=== PATIENT | female | born 1975 | race Caucasian/White ===

== ENCOUNTER 2018-09-09 16:20 | Emergency (ER) | payer OTHER ==
--- NOTE | 2018-09-09 16:54 | PDOC ---
Rapid Medical Evaluation Time Seen by Provider: 09/09/18 16:50 Medical Evaluation: I have performed a brief in-person evaluation of this patient. The patient presents with a chief complaint of: headache with nausea x 2 hours. right sided nose bleed. patient took no OTC meds Pertinent physical exam findings: none I have ordered the following: hcg The patient will proceed to the ED for further evaluation. Discharge Disposition - Diagnosis Headache - Referrals - Patient Instructions - Post Discharge Activity
[2018-09-09 16:56] VITALS: BP 120/62; PULSE 85; TEMP 98.6; BMI 27.3
[2018-09-09] MEDS ORDERED: ACETAMINOPHEN 500 MG TABLET (FP) PO ONE (17:16)
[2018-09-09] MEDS ORDERED: ACETAMINOPHEN 500 MG TABLET (FP) ONE (17:20)
[2018-09-09 17:41] LABS: BASO % 0.5 % (0-2.0); EOS % 2.3 % (0-4.5); HEMATOCRIT 37.8 % (32.4-45.2); HEMOGLOBIN 13.1 GM/dL (10.7-15.3); LYMPH % 34.6 % (8-40); MCH 28.1 pg (25.7-33.7); MCHC 34.6 g/dl (32.0-36.0); MEAN CELL VOLUME 81.3 fl (80-96); MEAN PLT VOLUME 8.7 fl (7.5-11.1); NEUT % 56.6 % (42.8-82.8); PLATELET COUNT 346 K/MM3 (134-434); RBC 4.65 M/mm3 (3.60-5.2); RDW 12.7 % (11.6-15.6); WHITE BLOOD COUNT 9.5 K/mm3 (4.0-10.0)
[2018-09-09 17:57] LABS: ALBUMIN 3.9 g/dl (3.4-5.0); ALK PHOS 71 U/L (45-117); ANION GAP 8 MMOL/L (8-16); BILIRUBIN,TOTAL 0.7 mg/dL (0.2-1); BLOOD UREA NITROGEN 11 mg/dL (7-18); CHLORIDE 104 mmol/L (98-107); CO2 26 mmol/L (21-32); CREATININE 0.9 mg/dL (0.55-1.3); GLUCOSE,RANDOM 101 mg/dL (74-106); POTASSIUM 3.8 mmol/L (3.5-5.1); SGOT/AST 18 U/L (15-37); SGPT/ALT 20 U/L (13-61); SODIUM 138 mmol/L (136-145); TOT PROT 7.8 g/dl (6.4-8.2)
--- NOTE | 2018-09-09 18:04 | PDOC ---
History of Present Illness - General Chief Complaint: Headache Stated Complaint: HEADACHE/NASAL BLEEDING Time Seen by Provider: 09/09/18 16:50 - History of Present Illness Initial Comments: 09/09/18 18:02 43 yo F with h/o asthma who p/w right sided unilateral headache. Pt. reports onset of stable, R sided, pulsating headache, beginning this AM, with no identifiable triggers. + Phonophobia/photophobia. Endorses nausea with two episodes of bilious, non bloody emesis this afternoon. Normal PO intake. states that headache is worse than prior headaches. Pain not improved with ASA. Typically takes Tylenol for YEN's, but did not take Tylenol today. Reports R sided nasal bleeding, now resolved. Denies head trauma. h/o R sided sinusitis, seen by ENT. Patient denies neck stiffness/pain, scintillating scotomas, olfactory change, vision change, tinnitus hearing loss, lacrimation, rhinnorhea, N/V, F,C, CP, SOB , urinary complaints, abdominal pain, diarrhea, constipation, lightheadedness, BPR, hematuria, weakness, sensory changes. PMHx: as noted above ROS: as noted Allergies: NKDA Past History - Past Medical History Allergies/Adverse Reactions: Allergies Allergy/AdvReac Type Severity Reaction Status Date / Time No Known Allergies Allergy Verified 09/09/18 16:51 Home Medications: Ambulatory Orders Albuterol Sulfate Inhaler - [Ventolin Hfa Inhaler -] 1 - 2 inh PO QID 09/09/18 Asthma: Yes COPD: No - Suicide/Smoking/Psychosocial Hx Smoking History: Never smoked Review of Systems - Review of Systems Comments:: 09/09/18 18:03 GENERAL/CONSTITUTIONAL: No fever or chills. No weakness. HEAD, EYES, EARS, NOSE AND THROAT: No change in vision. No ear pain or discharge. No sore throat. CARDIOVASCULAR: No chest pain or shortness of breath RESPIRATORY: No cough, wheezing, or hemoptysis. GASTROINTESTINAL: +nausea, vomiting. No diarrhea or constipation. GENITOURINARY: No dysuria, frequency, or change in urination. MUSCULOSKELETAL: No joint or muscle swelling or pain. No neck or back pain. SKIN: No rash NEUROLOGIC: +headache. No vertigo, loss of consciousness, or change in strength/ sensation. ENDOCRINE: No increased thirst. No abnormal weight change HEMATOLOGIC/LYMPHATIC: No anemia, easy bleeding, or history of blood clots. ALLERGIC/IMMUNOLOGIC: No hives or skin allergy. *Physical Exam - Vital Signs Last Vital Signs Temp Pulse Resp BP Pulse Ox 98.6 F 85 20 120/62 100 09/09/18 16:55 09/09/18 16:55 09/09/18 16:55 09/09/18 16:55 09/09/18 16:55 - Physical Exam Comments: 09/09/18 18:03 GENERAL: Awake, alert, and fully oriented, in no acute distress HEAD: No signs of trauma, normocephalic, atraumatic EYES: PERRLA, EOMI, sclera anicteric, conjunctiva clear ENT: + R sided maxillary sinus ttp. Auricles normal inspection, hearing grossly normal, nares patent, oropharynx clear without exudates. Moist mucosa NECK: Normal ROM, supple, no lymphadenopathy, JVD, or masses LUNGS: No distress, speaks full sentences, clear to auscultation bilaterally HEART: Regular rate and rhythm, normal S1 and S2, no murmurs, rubs or gallops, peripheral pulses normal and equal bilaterally. ABDOMEN: Soft, nontender, normoactive bowel sounds. No guarding, no rebound. No masses. Neg CVA ttp. EXTREMITIES : Normal inspection, Normal range of motion, no edema. No clubbing or cyanosis. NEUROLOGICAL: Cranial nerves II through XII grossly intact. Normal speech, normal gait, no focal sensorimotor deficits. Nml GERBER. Neg dysmetria on FTN, HTS. SKIN: Warm, Dry, normal turgor, no rashes or lesions noted Moderate Sedation - Procedure Monitoring Vital Signs: Procedure Monitoring Vital Signs Temperature 98.6 F 09/09/18 16:55 Pulse Rate 85 09/09/18 16:55 Respiratory Rate 20 09/09/18 16:55 Blood Pressure 120/62 09/09/18 16:55 O2 Sat by Pulse Oximetry (%) 100 09/09/18 16:55 ED Treatment Course - LABORATORY CBC & Chemistry Diagram: 09/09/18 17:21 09/09/18 17:21 - ADDITIONAL ORDERS Additional order review: Laboratory Results 09/09/18 17:21 Sodium 138 Potassium 3.8 Chloride 104 Carbon Dioxide 26 Anion Gap 8 BUN 11 Creatinine 0.9 Creat Clearance w eGFR > 60 Random Glucose 101 Calcium 9.0 Total Bilirubin 0.7 AST 18 ALT 20 Alkaline Phosphatase 71 Total Protein 7.8 Albumin 3.9 09/09/18 17:21 RBC 4.65 MCV 81.3 MCHC 34.6 RDW 12.7 MPV 8.7 Neutrophils % 56.6 Lymphocytes % 34.6 Monocytes % 6.0 Eosinophils % 2.3 Basophils % 0.5 - Medications Given in the ED: ED Medications Discontinued Medications Generic Name Dose Route Start Last Admin Trade Name Josep PRN Reason Stop Dose Admin Acetaminophen 1,000 mg 09/09/18 17:16 09/09/18 17:22 Tylenol - PO 09/09/18 17:17 1,000 mg ONCE ONE Administration Medical Decision Making - Medical Decision Making 09/09/18 18:16 43 yo F with h/o asthma who p/w right sided pulsating, unilateral headache, and vomittng. VSS, AF, A&Ox3. Absent neurological deficits on physical exam. Low suspicion SAH, meningitis, CVT, hypertensive emergency, pseudotumor. Likely migraine without aura vs. sinusitis. DDx also includes tension YEN, cluster YEN. Ed Course: Arrives from E CBC,CMP, HCG, UA Reglan, NS, Rylenol,Diphenhydramine 09/09/18 20:11 CBC,CMP: Unremarkable CTH: Neg. No acute pathology YEN improved/resolved Patient stable for d/c with return precautions. Advised to f/u with neuro. *DC/Admit/Observation/Transfer Diagnosis at time of Disposition: Headache Qualifiers: Headache type: unspecified Headache chronicity pattern: acute headache Intractability: not intractable Qualified Code(s): R51 - Headache - Discharge Dispostion Condition at time of disposition: Stable - Referrals Referrals: ON STAFF,NOT [Primary Care Provider] - Matt Manrique MD [Staff Physician] - - Patient Instructions Printed Discharge Instructions: DI for Migraine Additional Instructions: Please return to the emergency department with any new or worsening symptoms or concerns. Please follow up with your primary care physician within 72 hours. Please f/u with neurology within one week. Continue to take Ibruprofen and Tylenol for pain. - Post Discharge Activity - Attestations Physician Attestion: 09/09/18 18:03 I attest to the information provided in this note.
[2018-09-09] MEDS ORDERED: METOCLOPRAMIDE HCL INJECTION 10 MG/2 ML VIAL IVPUSH ONE (18:10)
[2018-09-09] MEDS ORDERED: SODIUM CHLORIDE 1,000 ML IV STA (18:16)
[2018-09-09] MEDS ORDERED: METOCLOPRAMIDE HCL INJECTION 10 MG/2 ML VIAL ONE (18:44)
[2018-09-09 19:32] LABS: ERYTHROCYTE SEDIMENTATION RATE 20 mm/hr (0-20)
--- NOTE | 2018-09-09 19:48 | PDOC ---
Attending Attestation - Resident Resident Name: Markell Mcgee - ED Attending Attestation I have performed the following: I have examined & evaluated the patient, The case was reviewed & discussed with the resident, I agree w/resident's findings & plan - HPI HPI: 09/09/18 20:02 43-year-old female history of migraines presents with severe headache with photophobia/nausea/vomiting that began progressively over the course of the day , also with an episode of epistaxis after vomiting. Similar to past migraines but not able to take home medications presents for evaluation. No other red flags of fevers or chills, no neck stiffness or confusion. - Physicial Exam PE: 09/09/18 20:03 Afebrile Upon my evaluation status post medications administered, patient has 0 out of 10 headache and wants to go home No facial tenderness, no photophobia, pupils are equal round reactive to light NEURO: Mental status: The patient is alert and oriented x3. Cranial nerves: Cranial nerves II through XII are intact Motor: The upper extremities are 5 over 5 in all muscle groups. The lower extremities are 5 over 5 in all muscle groups. No pronator drift. Sensation: Sensation is intact to light touch throughout. Cerebellar: Flezvl-zzuiry-zatr is normal in both upper extremities. Heel-knee- izaguirre is normal in both lower extremities. Gait: Normal. Heel and toe walking are normal. Tandem gait is normal. - Medical Decision Making 09/09/18 20:04 43-year-old female with migraine exacerbation, no other red flags on history or physical exam. CT head normal Labs are within normal limits, urine negative Received Tylenol, Reglan, Benadryl, IV fluids with complete relief of her headache Has Tylenol and Motrin at home, will provide neurology follow-up, understands return criteria
== END 2018-09-09 20:36 | disposition home or self-care (01) ==
LOC: JERFT 16:20 → JER 16:20
PROC: 3E0337Z Introduction of Electrolytic and Water Balance Substance into Peripheral Vein, Percutaneous Approach (ICD-10-PCS; principal; 2018-09-09)
PROC: 3E033GC Introduction of Other Therapeutic Substance into Peripheral Vein, Percutaneous Approach (ICD-10-PCS; 2018-09-09)
PROC: 3E033GC Introduction of Other Therapeutic Substance into Peripheral Vein, Percutaneous Approach (ICD-10-PCS; 2018-09-09)
DX: G43.909 Migraine, unspecified, not intractable, without status migrainosus (principal)
CPT/HCPCS: 36415; 70450-TC; 80053; 84703; 85025; 85651; 99282-25; J7030

== ENCOUNTER 2019-11-11 04:44 | Day surgery (SDC) | payer OTHER ==
[2019-11-09 13:45] VITALS: BMI 28.3
--- NOTE | 2019-11-11 07:40 | HP ---
Admitting History and Physical - Admission Chief Complaint: Vulva mass History of Present Illness: 44 yo Para 2, with prior hysterectomy and appendectomy is pre op for left Bartholin cyst excision. History Source: Patient Limitations to Obtaining History: No Limitations - Past Medical History ...LMP Comment: HX HYSTERECTOMY ...: No ...Para: 2 - Past Surgical History Past Surgical History: Yes: Appendectomy, Hysterectomy - Smoking History Smoking history: Never smoked - Alcohol/Substance Use Hx Alcohol Use: No - Social History History of Recent Travel: No Home Medications - Allergies Allergies/Adverse Reactions: Allergies Allergy/AdvReac Type Severity Reaction Status Date / Time No Known Allergies Allergy Verified 09/09/18 16:51 - Home Medications Home Medications: Ambulatory Orders Albuterol Sulfate Inhaler - [Ventolin Hfa Inhaler -] 1 - 2 inh PO QID 09/09/18 Family Medical History Family History: Unremarkable Review of Systems - Review of Systems Constitutional: reports: No Symptoms Eyes: reports: No Symptoms HENT: reports: No Symptoms Neck: reports: No Symptoms Cardiovascular: reports: No Symptoms Respiratory: reports: No Symptoms Gastrointestinal: reports: No Symptoms Genitourinary: denies: Pain Breasts: reports: No Symptoms Reported Musculoskeletal: reports: No Symptoms Psychiatric: reports: No Symptoms Pain Intensity: 0 Physical Examination Vital Signs: Vital Signs Temperature 98.5 F 11/11/19 06:50 Pulse Rate 69 11/11/19 06:50 Respiratory Rate 18 11/11/19 06:50 Blood Pressure 134/77 11/11/19 06:50 O2 Sat by Pulse Oximetry (%) 100 11/11/19 06:51 Constitutional: Yes: No Distress Eyes: Yes: Conjunctiva Clear Neck: Yes: Supple Cardiovascular: Yes: Regular Rate and Rhythm Respiratory: Yes: Regular Gastrointestinal: Yes: Normal Bowel Sounds ...Rectal Exam: Yes: WNL Breast(s): Yes: WNL Musculoskeletal: Yes: WNL Extremities: Yes: WNL Neurological: Yes: Alert, Oriented ...Motor Strength: WNL Psychiatric: Yes: Alert, Oriented Problem List - Problems (1) Bartholin cyst Problems reviewed: Yes Code(s): N75.0 - CYST OF BARTHOLIN'S GLAND Assessment/Plan Left Bartholin cyst Pre op for excision of Bartholin cyst Consent signed Anesthesia to see patient
[2019-11-11] MEDS ORDERED: LIDOCAINE HCL/PF 2% SDV 5ML VIAL ONE (07:41)
[2019-11-11] MEDS ORDERED: MIDAZOLAM HCL 2 MG/2 ML SINGLE DOSE VIAL ONE (07:42)
[2019-11-11] MEDS ORDERED: PROPOFOL 20 ML ONE (07:42)
[2019-11-11] MEDS ORDERED: DEXAMETHASONE SOD PHOSPHATE 4 MG/1 ML VIAL ONE (07:59)
[2019-11-11] MEDS ORDERED: KETOROLAC TROMETHAMINE 30 MG/1 ML VIAL ONE (08:26)
[2019-11-11] MEDS ORDERED: oxyCODONE HCL 5 MG TABLET PO PRN (09:19)
[2019-11-11] MEDS ORDERED: ONDANSETRON 4 MG/2 ML VIAL IVPUSH PRN (09:19)
[2019-11-11] MEDS ORDERED: ACETAMINOPHEN 1000 MG/100 ML VIAL (NON FORMULARY) IVPB PRN (09:20)
[2019-11-11] MEDS ORDERED: LACTATED RINGERS SOLUTION 1,000 ML IV SCH (09:30)
[2019-11-11] MEDS ORDERED: oxyCODONE HCL 5 MG TABLET ONE ×2 (10:12→14:04)
--- NOTE | 2019-11-11 10:18 | OP ---
Operative Note - Note: Operative Date: 11/11/19 Pre-Operative Diagnosis: Left Bartholin cyst Operation: Excision of left Bartholin cyst Post-Operative Diagnosis: Same as Pre-op Surgeon: Georgina Silva Anesthesia: General Specimens Removed: Bartholin cyst Estimated Blood Loss (mls): 200 Operative Report Dictated: Yes
--- NOTE | 2019-11-11 11:58 | OP ---
DATE OF OPERATION: 11/11/2019 PREOPERATIVE DIAGNOSIS: Left Bartholin cyst. POSTOPERATIVE DIAGNOSIS: Left Bartholin cyst. PROCEDURE: Excision of left Bartholin cyst. SURGEON: Georgina Silva MD ANESTHESIA: General. COMPLICATIONS: None. ESTIMATED BLOOD LOSS: 200 mL. DESCRIPTION OF PROCEDURE: Patient was taken to the operating room where general anesthesia was administered. Patient was then placed in lithotomy position. She was then prepped and draped in proper sterile fashion. After injecting the area with Pitressin, an incision was made over the labia minora then the edges of the incision were held using several Allis clamps. Then using the Metzenbaum scissors, the cyst was dissected out the vagina and vulva. Hemostasis obtained using 0 Vicryl sutures. All the space was closed using 0 Vicryl sutures. Then the superficial layer was closed using 2-0 Biosyn. Then the packing was placed in the vagina to put pressure to avoid internal bleeding. Then the instruments were removed. Patient was taken out of lithotomy position. She was taken to PACU in stable condition. pathology left Bartholin cyst. GEORGINA SILVA M.D. [id number]
[2019-11-11] MEDS ORDERED: oxyCODONE HCL 5 MG TABLET PO ONE (14:10)
[2019-11-11] MEDS ORDERED: ONDANSETRON 4 MG/2 ML VIAL ONE (14:36)
[2019-11-11 14:45] VITALS: TEMP 98.3
[2019-11-11] MEDS ORDERED: ONDANSETRON 4 MG/2 ML VIAL IVPUSH ONE (14:48)
[2019-11-11 19:13] VITALS: BP 111/59; PULSE 76
--- NOTE | 2019-11-14 15:42 | PATH ---
Surgical Pathology Report Patient Name: PIERCE CALVIN [facility]. Rec. #: [id number] /Age/Gender: 1975 (Age: 44) / F Account: [id number] Location: [facility] SURGICAL Taken: 11/11/2019 Received: 11/11/2019 Reported: 11/14/2019 Physicians: Georgina Silva M.D. Specimen(s) Received BARTHOLIN'S CYST Clinical History Left Bartholin's cyst Final Diagnosis BARTHOLIN'S CYST, EXCISION: BARTHOLIN'S CYST, RUPTURED, WITH ASSOCIATED REACTIVE CHANGES. Electronically Signed Elisabeth Kent M.D. Gross Description Received in formalin labeled "Bartholin's cyst," is a 4.0 x 2.7 x 2.3 cm intact cystic structure. The outer surface is summers-pink with focal adhesions. The cyst lumen contains summers-brown necrotic material. The inner lining of the cyst is smooth. Quality Control Engineer sections are submitted in 4 cassettes. /11/11/2019 [facility]/11/11/2019
== END 2019-11-11 18:10 | disposition home or self-care (01) ==
LOC: JASU-SURG 04:44
PROVIDERS: ATTEND Obstetrics & Gynecology
PROC: 0UBL0ZZ Excision of Vestibular Gland, Open Approach (ICD-10-PCS; principal; 2019-11-11 07:30)
DX: N75.0 Cyst of Bartholin's gland (principal)
CPT/HCPCS: 88304-TC; 94760; J0131